=== PATIENT | female | born 1990 | race Two or more races ===

== ENCOUNTER 2018-01-17 19:12 | Emergency (ER) | payer OTHER ==
[2018-01-17 19:28] VITALS: BP 133/92; PULSE 84; TEMP 97.8; BMI 31.6
--- NOTE | 2018-01-17 19:28 | PDOC ---
Rapid Medical Evaluation Chief Complaint: Pain, Acute Time Seen by Provider: 01/17/18 19:25 Medical Evaluation: 01/17/18 19:25 CC: Bilateral leg pain HPI: Pt is a 27 YO female who complains of bilateral leg pain. She denies edema, denies injury or trauma. Pt took Tylenol without difficulty. Pt states she has "tumor" in the right hip. I have performed a brief in- person evaluation of this patient. Pertinent Physical Findings: Skin: Clear Lungs: Clear Heart: RRR Neuro: Alert Psych: Appropriate affect The patient will proceed to: Main ED fo further evaluation. Discharge Disposition - Diagnosis Leg pain Qualifiers: Laterality: bilateral Qualified Code(s): M79.604 - Pain in right leg; M79.605 - Pain in left leg - Referrals - Patient Instructions - Post Discharge Activity
--- NOTE | 2018-01-17 20:08 | PDOC ---
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 Patient's hip mass was found incidentally on CT scan several weeks ago after patient was evaluated for diarrhea in a separate hospital. Patient states that since finding out about the mass, she has had increasing pain with walking. Patient states that she's always been able to walk. Denies fevers, chills, nausea, vomiting, trauma. No inciting event. Ortho: Dr Hartman Past History - Past Medical History Allergies/Adverse Reactions: Allergies Allergy/AdvReac Type Severity Reaction Status Date / Time No Known Allergies Allergy Verified 01/17/18 19:28 Home Medications: Ambulatory Orders Oxycodone HCl/Acetaminophen [Percocet 5-325 mg Tablet] 1 tab PO BID PRN #7 tablet MDD 2 tabs 01/17/18 COPD: No - Suicide/Smoking/Psychosocial Hx Smoking History: Never smoked Review of Systems - Review of Systems Comments:: 01/17/18 20:08 GENERAL/CONSTITUTIONAL: No fever or chills. No weakness. HEAD, EYES, EARS, NOSE AND THROAT: No change in vision. No sore throat. CARDIOVASCULAR: No chest pain or shortness of breath RESPIRATORY: No cough, wheezing, or hemoptysis. GASTROINTESTINAL: No nausea, vomiting, diarrhea or constipation. GENITOURINARY: No dysuria, frequency, or change in urination. MUSCULOSKELETAL: +R hip pain. No neck or back pain. SKIN: No rash NEUROLOGIC: No headache, vertigo, loss of consciousness, or change in strength/ sensation. ENDOCRINE: No increased thirst. No abnormal weight change HEMATOLOGIC/LYMPHATIC: No anemia, easy bleeding, or history of blood clots. ALLERGIC/IMMUNOLOGIC: No hives or skin allergy. *Physical Exam - Vital Signs Last Vital Signs Temp Pulse Resp BP Pulse Ox 97.8 F 84 18 133/92 100 01/17/18 19:25 01/17/18 19:25 01/17/18 19:25 01/17/18 19:25 01/17/18 19:25 - Physical Exam Comments: 01/17/18 20:09 GENERAL: Awake, alert, and fully oriented, in no acute distress R HIP: Mildly tender, normal ROM, no pain with passive motion or axial loading. Neurovascularly intact. HEAD: No signs of trauma, normocephalic, atraumatic EYES: PERRLA, EOMI, sclera anicteric, conjunctiva clear ENT: Auricles normal inspection, hearing grossly normal, nares patent, oropharynx clear without exudates. Moist mucosa NECK: Normal ROM, supple, no lymphadenopathy, JVD, or masses LUNGS: No distress, speaks full sentences, clear to auscultation bilaterally HEART: Regular rate and rhythm, normal S1 and S2, no murmurs, rubs or gallops, peripheral pulses normal and equal bilaterally. ABDOMEN: Soft, nontender, normoactive bowel sounds. No guarding, no rebound. No masses EXTREMITIES: Normal inspection, Normal range of motion, no edema. No clubbing or cyanosis. NEUROLOGICAL: Cranial nerves II through XII grossly intact. Normal speech, normal gait, no focal sensorimotor deficits SKIN: Warm, Dry, normal turgor, no rashes or lesions noted. ED Treatment Course - RADIOLOGY Radiology Studies Ordered: Category Date Time Status HIP & PELVIS-RIGHT [RAD] Stat Radiology 01/17/18 19:54 Ordered Medical Decision Making - Medical Decision Making 01/17/18 20:11 Patient is a 27F with history of r sided femoral neck mass, likely benign, here today complaining of R hip pain. Dr Hartman ([phone]) is patient's ortho doctor. Paged, but office is closed with no answering service. Patient has followup for Sunday already scheduled. Will do x-ray and give percocet for pain control. Likely discharge. 01/17/18 21:29 X-rays show lesion to femoral neck. No fracture. Patient feels better, has follow up already scheduled. Will discharge home with instructions to take tylenol and motrin for pain, with percocet for breakthrough pain. *DC/Admit/Observation/Transfer Diagnosis at time of Disposition: Leg pain Qualifiers: Laterality: bilateral Qualified Code(s): M79.604 - Pain in right leg - Discharge Dispostion Disposition: HOME Condition at time of disposition: Good Decision to Admit order: No - Prescriptions Prescriptions: Oxycodone HCl/Acetaminophen [Percocet 5-325 mg Tablet] 1 tab PO BID PRN #7 tablet MDD 2 tabs PRN Reason: Pain - Referrals Referrals: Gianna Ospina MD [Primary Care Provider] - - Patient Instructions Printed Discharge Instructions: DI for Leg Pain Additional Instructions: Please return if you have any new, worsening or concerning symptoms, especially increasing pain and fever. Please follow up with your orthopedists as already scheduled. Please take tylenol 650mg up to 4 times per day and ibuprofen 600mg up to 3 times per day. - Post Discharge Activity
[2018-01-17] MEDS ORDERED: IBUPROFEN 600 MG TABLET (FP) PO ONE ×2 (20:48→21:27)
--- NOTE | 2018-01-17 21:06 | PDOC ---
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 No fevers or chills, no discoloration or motor or sensory deficit. Takes Tylenol without relief, presents for evaluation. No history of injury. - Physicial Exam PE: 01/17/18 21:04 Afebrile Well-appearing, ambulating with slightly antalgic gait, otherwise full range of motion of the right hip with full strength, neurovascularly intact distally without focal joint effusions or evidence of infection or injury No palpable masses - Medical Decision Making 01/17/18 21:04 27-year-old female with incidental finding of soft tissue tumor around the right hip, likely benign on CT and MRI imaging. Patient with recent onset of pain since the diagnosis, otherwise no red flags on history or physical exam. No evidence of neurovascular compromise or fracture. Trial additional pain medications Reassurance, discharge with continued outpatient follow-up
== END 2018-01-17 21:37 | disposition home or self-care (01) ==
LOC: JER 19:12
DX: M25.561 Pain in right knee (principal); E78.00 Pure hypercholesterolemia, unspecified; Z86.018 Personal history of other benign neoplasm
CPT/HCPCS: 73523-TC-FY; 84703; 99282-25